=== PATIENT | female | born 1930 | race Caucasian/White ===

== ENCOUNTER 2018-05-18 20:48 | Inpatient (IN) ==
[2018-05-18] MEDS ORDERED: ALBUTEROL/IPRATROPIUM 3 ML NEB RESP TX STA (21:28)
[2018-05-18] MEDS ORDERED: predniSONE 20 MG TABLET PO STA (21:28)
[2018-05-18 21:30] LABS: Basophils % 0.3 % (0.0-0.8); Eosinophils % 0.3 % (0.00-10.9); Hematocrit 35.9 VOL% (35.7-47.0); Hemoglobin 11.6 GM/DL (12.0-16.0); Immature Granulocytes % 0.6 %; Lymphocytes # 0.4 10*3/uL (1.4-4.0); Lymphocytes % 2.3 % (21.3-54.2); Mean Corpuscular HGB Conc 32.3 GM/DL (32-36); Mean Corpuscular Hemoglobin 32 PG (27-34); Mean Corpuscular Volume 100.3 FL (87-102); Mean Platelet Volume 8.7 FL (9.6-12.0); Monocytes # 0.7 10*3/uL (0.11-0.8); Monocytes % 4.4 % (1.7-12.7); Neutrophils # 14.6 10*3/uL (1.4-7.4); Neutrophils % 92.1 % (38.7-73.9); Platelet Count 177 T/CUMM (130-400); Red Blood Count 3.58 MC/CUMM (3.8-5.5); Red Cell Distribution Width 12.9 % (9.3-17.3); White Blood Count 15.8 T/CUMM (4-12)
[2018-05-18 21:42] LABS: INR 0.9; PT Patient Result 10.3 SECS; Partial Thromboplastin Time 24.7 SECS (0-40)
[2018-05-18 22:16] LABS: Albumin 3.4 G/DL (3.4-5.0); Bilirubin,Total 0.4 MG/DL (0.2-1.0); Osmolality,Calculated 272.2 MOS/KG (273-304); Potassium 3.3 MMOL/L (3.5-5.1)
[2018-05-18 22:44] LABS: Lymphocytes 2 % (20-55); Macrocytosis Slight; Platelet Estimate Normal; Segmented Neutrophils 94 % (50-85)
[2018-05-18 22:45] LABS: Hypochromasia Slight; Polychromasia Slight; Stomatocytes Few
[2018-05-18 22:46] LABS: Total Cells Counted 100
[2018-05-18] MEDS ORDERED: methylPREDNISolone SOD SUC 40 MG/1 ML VIAL IV SCH (23:45)
[2018-05-18] MEDS ORDERED: ALBUTEROL 2.5 MG/3 ML NEB RESP TX PRN (23:46)
[2018-05-18] MEDS ORDERED: ACETAMINOPHEN 325 MG TABLET PO PRN (23:46)
[2018-05-18] MEDS ORDERED: guaiFENesin/DM ER 600-30 MG TABLET PO PRN (23:46)
[2018-05-18] MEDS ORDERED: MAGNESIUM SULF RIDER 2 GM in PREMIX 1 EACH IV ONE (23:46)
[2018-05-18] MEDS ORDERED: ONDANSETRON 4 MG/2 ML VIAL IV PRN (23:46)
[2018-05-18] MEDS ORDERED: MORPHINE 4 MG/1 ML VIAL IV PRN (23:46)
[2018-05-19 00:14] LABS: ABG Base Excess 0.7 MMOL/L (-2.5-2.5); ABG HCO3 24.5 MMOL/L (20-26); ABG Oxygen Saturation 94.6 % (95-100); ABG PCO2 36.4 MM HG (35-48); ABG PH 7.446 (7.35-7.45); ABG PO2 77.6 MM HG (80-95); ABG TCO2 25.6 MMOL/L (23-27); Allen Test Positive
[2018-05-19] MEDS ORDERED: predniSONE 10 MG TABLET ONE (01:33)
[2018-05-19] MEDS ORDERED: AZITHROMYCIN INJ 500 MG in SODIUM CHLORIDE 0.9% 250 ML IV SCH (02:00)
[2018-05-19] MEDS: ALBUTEROL/IPRATROPIUM 3 ML NEB RESP TX SCH ×6 (03:13→20:22)
[2018-05-19] MEDS: PANTOPRAZOLE 40 MG VIAL IV SCH (03:28)
[2018-05-19 07:21] LABS: Basophils % 0.1 % (0.0-0.8); Hemoglobin 10.8 GM/DL (12.0-16.0); Immature Granulocytes % 0.6 %; Immature Granulocytes Absolute 0.09 #; Lymphocytes # 0.2 10*3/uL (1.4-4.0); Lymphocytes % 1.2 % (21.3-54.2); Mean Corpuscular HGB Conc 32.7 GM/DL (32-36); Mean Corpuscular Hemoglobin 33 PG (27-34); Mean Corpuscular Volume 99.7 FL (87-102); Mean Platelet Volume 8.9 FL (9.6-12.0); Monocytes # 0.2 10*3/uL (0.11-0.8); Monocytes % 1.5 % (1.7-12.7); Neutrophils # 14.4 10*3/uL (1.4-7.4); Neutrophils % 96.6 % (38.7-73.9); Platelet Count 176 T/CUMM (130-400); Red Blood Count 3.31 MC/CUMM (3.8-5.5); Red Cell Distribution Width 13.2 % (9.3-17.3); White Blood Count 14.9 T/CUMM (4-12)
[2018-05-19 07:34] LABS: Alanine Aminotransferase 13 U/L (13-56); Alkaline Phosphatase 89 U/L (45-117); Aspartate Amino Transferase 17 U/L (0-37); Bilirubin,Total < 0.39 MG/DL (0.2-1.0); Blood Urea Nitrogen 11 MG/DL (7-18); Calcium 8.6 MG/DL (8.5-10.1); Glucose 179 MG/DL (74-106); Osmolality,Calculated 272.1 MOS/KG (273-304); Potassium 3.6 MMOL/L (3.5-5.1); Sodium 135 MMOL/L (136-145); Total Protein 7.1 G/DL (6.4-8.3)
[2018-05-19 08:25] LABS: Band Neutrophils 1 % (0-10); Lymphocytes 1 % (20-55); Segmented Neutrophils 97 % (50-85); Total Cells Counted 100
[2018-05-19 08:26] LABS: Hypochromasia Slight; Macrocytosis Slight
[2018-05-19 08:28] LABS: Platelet Estimate Adequate
[2018-05-19] MEDS: ENOXAPARIN 40 MG/0.4 ML SYRINGE SUBCUT SCH (08:36)
[2018-05-19] MEDS: methylPREDNISolone SOD SUC 40 MG/1 ML VIAL IV SCH ×2 (10:36→17:17)
[2018-05-19] MEDS: MONTELUKAST 10 MG TABLET PO SCH (10:36)
[2018-05-19] MEDS: BUDESONIDE/FORMOTEROL 160-4.5 INHALER 6 GM INH SCH ×2 (10:37→20:33)
[2018-05-19 12:34] LABS: Apearance,Urine Slightly Hazy (Clear); Bacteria,Urine Occasional /HPF (Few); Bilirubin,Urine Negative (Negative); Blood, Urine Moderate mg/dL (Negative); Glucose,Urine (UA) Negative (Negative); Ketones,Urine Negative (Negative); Mucus,Urine Occasional /LPF (Occasional); Nitrite,Urine Negative (Negative); Protein,Urine 30 MG/DL; RBC,Urine 4 /HPF (0-4); Squamous Epithelial Cell,Urine Occasional /HPF (0-10); Urine Specific Gravity 1.017 (1.001-1.035); Urine Urobilinogen < 2.0 EU/DL (0.2-1.0); WBC,Urine 25 /HPF (0-6)
[2018-05-19 12:36] LABS: Urine Color Yellow (Yellow)
[2018-05-19] MEDS: CLOPIDOGREL 75 MG TABLET PO SCH (14:55)
[2018-05-19] MEDS: TAMOXIFEN 10 MG TABLET PO SCH (14:55)
[2018-05-19] MEDS: cefTRIAXone 1,000 MG in SYRINGE 1 EACH IV SCH (14:55)
[2018-05-19] MEDS: carBAMazepine 200 MG TABLET PO SCH ×2 (14:56→20:33)
[2018-05-19] MEDS: ASPIRIN EC 81 MG TABLET PO SCH (14:56)
[2018-05-19] MEDS: CETIRIZINE 10 MG TABLET PO SCH (14:56)
[2018-05-19] MEDS: ATENOLOL 25 MG TABLET PO SCH (14:56)
[2018-05-20] MEDS: ALBUTEROL/IPRATROPIUM 3 ML NEB RESP TX SCH ×7 (00:42→23:55)
[2018-05-20] MEDS: methylPREDNISolone SOD SUC 40 MG/1 ML VIAL IV SCH ×3 (00:57→17:39)
[2018-05-20] MEDS ORDERED: hydrALAZINE 20 MG/1 ML VIAL IV PRN (04:51)
[2018-05-20] MEDS: LEVOTHYROXINE 75 MCG TABLET PO SCH (06:06)
[2018-05-20] MEDS: ASPIRIN EC 81 MG TABLET PO SCH (09:13)
[2018-05-20] MEDS: TAMOXIFEN 10 MG TABLET PO SCH (09:14)
[2018-05-20] MEDS: ATORVASTATIN 10 MG TABLET PO SCH (09:14)
[2018-05-20] MEDS: CLOPIDOGREL 75 MG TABLET PO SCH (09:15)
[2018-05-20] MEDS: carBAMazepine 200 MG TABLET PO SCH ×2 (09:15→21:14)
[2018-05-20] MEDS: MONTELUKAST 10 MG TABLET PO SCH (09:15)
[2018-05-20] MEDS: ATENOLOL 25 MG TABLET PO SCH (09:16)
[2018-05-20] MEDS: CETIRIZINE 10 MG TABLET PO SCH (09:16)
[2018-05-20] MEDS: BUDESONIDE/FORMOTEROL 160-4.5 INHALER 6 GM INH SCH ×2 (09:21→21:24)
[2018-05-20] MEDS: ENOXAPARIN 40 MG/0.4 ML SYRINGE SUBCUT SCH (09:24)
[2018-05-20] MEDS: PANTOPRAZOLE 40 MG VIAL IV SCH (09:26)
[2018-05-20] MEDS: amLODIPine 10 MG TABLET PO SCH (14:23)
[2018-05-20] MEDS: cefTRIAXone 1,000 MG in SYRINGE 1 EACH IV SCH (15:39)
[2018-05-20] MEDS: diphenhydrAMINE CAP 25 MG CAPSULE PO PRN (22:41)
[2018-05-21] MEDS: methylPREDNISolone SOD SUC 40 MG/1 ML VIAL IV SCH (02:58)
[2018-05-21] MEDS: ALBUTEROL/IPRATROPIUM 3 ML NEB RESP TX SCH ×6 (03:02→23:45)
[2018-05-21 03:32] LABS: Basophils % 0.1 % (0.0-0.8); Hematocrit 31.8 VOL% (35.7-47.0); Hemoglobin 10.4 GM/DL (12.0-16.0); Immature Granulocytes % 1.2 %; Immature Granulocytes Absolute 0.19 #; Lymphocytes # 0.8 10*3/uL (1.4-4.0); Lymphocytes % 4.9 % (21.3-54.2); Mean Corpuscular HGB Conc 32.7 GM/DL (32-36); Mean Corpuscular Hemoglobin 32 PG (27-34); Mean Corpuscular Volume 98.5 FL (87-102); Mean Platelet Volume 9.1 FL (9.6-12.0); Monocytes # 0.6 10*3/uL (0.11-0.8); Neutrophils # 14.5 10*3/uL (1.4-7.4); Neutrophils % 89.8 % (38.7-73.9); Platelet Count 207 T/CUMM (130-400); Red Blood Count 3.23 MC/CUMM (3.8-5.5); Red Cell Distribution Width 12.6 % (9.3-17.3); White Blood Count 16.2 T/CUMM (4-12)
[2018-05-21 04:02] LABS: Calcium 8.5 MG/DL (8.5-10.1); Osmolality,Calculated 258.9 MOS/KG (273-304)
[2018-05-21 04:19] LABS: Lymphocytes 3 % (20-55); Platelet Estimate Adequate; Segmented Neutrophils 94 % (50-85); Total Cells Counted 100
[2018-05-21] MEDS: LEVOTHYROXINE 75 MCG TABLET PO SCH (07:36)
[2018-05-21] MEDS: ATORVASTATIN 10 MG TABLET PO SCH (09:35)
[2018-05-21] MEDS: ASPIRIN EC 81 MG TABLET PO SCH (09:35)
[2018-05-21] MEDS: ENOXAPARIN 40 MG/0.4 ML SYRINGE SUBCUT SCH (09:36)
[2018-05-21] MEDS: TAMOXIFEN 10 MG TABLET PO SCH (09:36)
[2018-05-21] MEDS: amLODIPine 10 MG TABLET PO SCH (09:37)
[2018-05-21] MEDS: MONTELUKAST 10 MG TABLET PO SCH (09:37)
[2018-05-21] MEDS: CLOPIDOGREL 75 MG TABLET PO SCH (09:37)
[2018-05-21] MEDS: predniSONE 20 MG TABLET PO SCH (09:37)
[2018-05-21] MEDS: ATENOLOL 25 MG TABLET PO SCH (09:38)
[2018-05-21] MEDS: CETIRIZINE 10 MG TABLET PO SCH (09:38)
[2018-05-21] MEDS: BUDESONIDE/FORMOTEROL 160-4.5 INHALER 6 GM INH SCH ×2 (09:38→22:45)
[2018-05-21] MEDS: carBAMazepine 200 MG TABLET PO SCH ×2 (09:38→20:00)
[2018-05-21] MEDS: PANTOPRAZOLE 40 MG VIAL IV SCH (09:41)
[2018-05-21] MEDS: LEVOFLOXACIN INJ 500 MG in PREMIX 1 EACH IV SCH (12:09)
[2018-05-21] MEDS: diphenhydrAMINE CAP 25 MG CAPSULE PO PRN (19:54)
[2018-05-22] MEDS: ALBUTEROL/IPRATROPIUM 3 ML NEB RESP TX SCH ×6 (03:02→22:49)
[2018-05-22 05:24] LABS: Basophils % 0.1 % (0.0-0.8); Eosinophils % 0.2 % (0.00-10.9); Hematocrit 32.9 VOL% (35.7-47.0); Hemoglobin 10.8 GM/DL (12.0-16.0); Immature Granulocytes % 1.8 %; Lymphocytes # 1.3 10*3/uL (1.4-4.0); Mean Corpuscular HGB Conc 32.8 GM/DL (32-36); Mean Corpuscular Hemoglobin 32 PG (27-34); Mean Corpuscular Volume 96.8 FL (87-102); Mean Platelet Volume 8.5 FL (9.6-12.0); Monocytes % 9.1 % (1.7-12.7); Neutrophils # 8.4 10*3/uL (1.4-7.4); Neutrophils % 76.8 % (38.7-73.9); Platelet Count 210 T/CUMM (130-400); Red Cell Distribution Width 12.6 % (9.3-17.3)
[2018-05-22 05:43] LABS: Albumin 2.6 G/DL (3.4-5.0); Bilirubin,Total 0.4 MG/DL (0.2-1.0); Calcium 8.6 MG/DL (8.5-10.1); Osmolality,Calculated 263.7 MOS/KG (273-304); Potassium 3.5 MMOL/L (3.5-5.1); Total Protein 5.9 G/DL (6.4-8.3)
[2018-05-22] MEDS: LEVOTHYROXINE 75 MCG TABLET PO SCH (05:52)
[2018-05-22] MEDS: TAMOXIFEN 10 MG TABLET PO SCH (09:30)
[2018-05-22] MEDS: carBAMazepine 200 MG TABLET PO SCH ×2 (09:35→20:39)
[2018-05-22] MEDS: MONTELUKAST 10 MG TABLET PO SCH (09:35)
[2018-05-22] MEDS: ATENOLOL 25 MG TABLET PO SCH (09:35)
[2018-05-22] MEDS: CLOPIDOGREL 75 MG TABLET PO SCH (09:36)
[2018-05-22] MEDS: ASPIRIN EC 81 MG TABLET PO SCH (09:36)
[2018-05-22] MEDS: CETIRIZINE 10 MG TABLET PO SCH (09:36)
[2018-05-22] MEDS: ATORVASTATIN 10 MG TABLET PO SCH (09:36)
[2018-05-22] MEDS: amLODIPine 10 MG TABLET PO SCH (09:36)
[2018-05-22] MEDS: predniSONE 20 MG TABLET PO SCH (09:36)
[2018-05-22] MEDS: ENOXAPARIN 40 MG/0.4 ML SYRINGE SUBCUT SCH (09:37)
[2018-05-22] MEDS: LEVOFLOXACIN INJ 500 MG in PREMIX 1 EACH IV SCH (11:42)
[2018-05-22] MEDS: BUDESONIDE/FORMOTEROL 160-4.5 INHALER 6 GM INH SCH ×2 (11:42→20:39)
[2018-05-22] MEDS: diphenhydrAMINE CAP 25 MG CAPSULE PO PRN (19:25)
[2018-05-23] MEDS: PANTOPRAZOLE 40 MG VIAL IV SCH (02:51)
[2018-05-23] MEDS: ALBUTEROL/IPRATROPIUM 3 ML NEB RESP TX SCH ×3 (03:20→11:20)
[2018-05-23 05:33] LABS: Basophils % 0.2 % (0.0-0.8); Eosinophils # 0.1 10*3/uL (0.0-0.87); Eosinophils % 0.9 % (0.00-10.9); Hematocrit 35.4 VOL% (35.7-47.0); Hemoglobin 11.7 GM/DL (12.0-16.0); Immature Granulocytes % 1.9 %; Immature Granulocytes Absolute 0.15 #; Lymphocytes # 1.1 10*3/uL (1.4-4.0); Lymphocytes % 13.5 % (21.3-54.2); Mean Corpuscular HGB Conc 33.1 GM/DL (32-36); Mean Corpuscular Hemoglobin 32 PG (27-34); Mean Corpuscular Volume 97.3 FL (87-102); Monocytes # 0.7 10*3/uL (0.11-0.8); Monocytes % 8.2 % (1.7-12.7); Neutrophils # 6.1 10*3/uL (1.4-7.4); Neutrophils % 75.3 % (38.7-73.9); Platelet Count 178 T/CUMM (130-400); Red Blood Count 3.64 MC/CUMM (3.8-5.5); Red Cell Distribution Width 12.6 % (9.3-17.3); White Blood Count 8.1 T/CUMM (4-12)
[2018-05-23 05:35] LABS: Albumin 2.5 G/DL (3.4-5.0); Bilirubin,Total 0.9 MG/DL (0.2-1.0); Osmolality,Calculated 264.5 MOS/KG (273-304); Potassium 3.8 MMOL/L (3.5-5.1); Total Protein 5.7 G/DL (6.4-8.3)
[2018-05-23 05:54] LABS: Hypochromasia Slight; Macrocytosis Slight
[2018-05-23 05:55] LABS: Platelet Estimate Adequate
[2018-05-23] MEDS: LEVOTHYROXINE 75 MCG TABLET PO SCH (06:56)
[2018-05-23] MEDS: ATORVASTATIN 10 MG TABLET PO SCH (10:26)
[2018-05-23] MEDS: ASPIRIN EC 81 MG TABLET PO SCH (10:27)
[2018-05-23] MEDS: MONTELUKAST 10 MG TABLET PO SCH (10:27)
[2018-05-23] MEDS: ATENOLOL 25 MG TABLET PO SCH (10:27)
[2018-05-23] MEDS: TAMOXIFEN 10 MG TABLET PO SCH (10:27)
[2018-05-23] MEDS: CLOPIDOGREL 75 MG TABLET PO SCH (10:28)
[2018-05-23] MEDS: carBAMazepine 200 MG TABLET PO SCH (10:28)
[2018-05-23] MEDS: ENOXAPARIN 40 MG/0.4 ML SYRINGE SUBCUT SCH (10:28)
[2018-05-23] MEDS: amLODIPine 10 MG TABLET PO SCH (10:28)
[2018-05-23] MEDS: CETIRIZINE 10 MG TABLET PO SCH (10:28)
[2018-05-23] MEDS: BUDESONIDE/FORMOTEROL 160-4.5 INHALER 6 GM INH SCH (10:30)
[2018-05-23] MEDS: predniSONE 20 MG TABLET PO SCH (10:33)
[2018-05-23] MEDS: LEVOFLOXACIN INJ 500 MG in PREMIX 1 EACH IV SCH (11:31)
[2018-05-23 13:12] VITALS: BP 137/65
== END 2018-05-23 13:40 | DRG 191 ==
LOC: EDUNIT# → EDBD → N.ED 20:48 → N.EDINP 23:46 → SUATTDRO 23:46 → N.CC 05-19 03:05 → N.5E 05-21 14:14
PROVIDERS: ADMIT Internal Medicine; ATTEND Internal Medicine Geriatric Medicine